=== PATIENT | female | born 1990 | race African-American/Black ===

== ENCOUNTER 2020-10-27 06:52 | Emergency (ER) | payer OTHER, SELFPAY ==
[~2020-10-27] VITALS: Ht 172.7 cm; Wt 92.8 kg
[2020-10-27 07:04] VITALS: Ht 172.7 cm; Wt 92.8 kg
[2020-10-27 09:08] VITALS: BP 118/73
== END 2020-10-27 09:08 | disposition home or self-care (01) ==
LOC: ED 06:52
DX: U07.1 COVID-19 (principal); E66.9 Obesity, unspecified; Z68.31 Body mass index [BMI] 31.0-31.9, adult
CPT/HCPCS: U0003